=== PATIENT | female | born 1965 | race Caucasian/White ===

== ENCOUNTER 2024-04-23 07:06 | Day surgery (SDC) | payer BC ==
[~2024-04-23 07:06] MED LIST: Sodium Chloride 0.9% 10 ML Syringe FLUSH PRN; Sodium Chloride 0.9% 10 ML Syringe FLUSH SCH
[2024-04-23] MEDS ORDERED: Propofol 200 MG/20 ML SDV ONE (07:28)
[2024-04-23] MEDS ORDERED: Lidocaine 2% 5 ML SDV ONE (07:29)
[2024-04-23] MEDS ORDERED: Midazolam 1 MG/ML 2 ML SDV ONE (07:29)
[2024-04-23] MEDS: Lactated Ringers 1,000 ML IV SCH (07:35)
== END 2024-04-23 09:10 | disposition home or self-care (01) ==
LOC: JD.SDS 07:06
PROVIDERS: ATTEND Surgery
DX: Z12.11 Encounter for screening for malignant neoplasm of colon (principal); K64.0 First degree hemorrhoids; F41.9 Anxiety disorder, unspecified; F32.A Depression, unspecified; E03.9 Hypothyroidism, unspecified; Z79.890 Hormone replacement therapy; Z79.899 Other long term (current) drug therapy; Z88.5 Allergy status to narcotic agent; Z88.8 Allergy status to other drugs, medicaments and biological substances
CPT/HCPCS: J2003; J2250; J2704; J7120